=== PATIENT | male | born 1990 | race Caucasian/White ===

== ENCOUNTER 2023-12-20 14:04 | Emergency (ER) | payer OTHER, SELFPAY ==
[2023-12-20 14:09] VITALS: BP 134/84; PULSE 88; RESP 16; TEMP 36.6; O2SAT 97; BMI 28.8
--- NOTE | 2023-12-20 14:17 | DI.RAD.S_ITS ---
PROCEDURE: XR CHEST 1V INDICATIONS: SOB, cough TECHNIQUE: One view of the chest was acquired. COMPARISON: None. FINDINGS: Surgical changes and devices: None. Lungs and pleura: Lungs are clear. No pleural effusions or pneumothorax. Mediastinum: Mediastinal contours appear normal. Heart size is normal. Bones and chest wall: No suspicious bony lesions. Overlying soft tissues appear unremarkable. IMPRESSION: No acute cardiopulmonary abnormality is seen. Dictated by: Magno Stein M.D. on 12/20/2023 at 14:52 Approved by: Magno Stein M.D. on 12/20/2023 at 14:52
--- NOTE | 2023-12-20 15:02 | PC.NURSE ---
PT REPORTS WORSENING SHORTNESS OF BREATH; STATES IT IS WORSE UPON EXERTION. DENIES HX OF BLOOD CLOTS. NO EDEMA OR FLUID OVERLOAD SEEN, HEARD, OR REPORTED BY PT. PT REPORTS HE HAD COVID A COUPLE WEEKS AGO AND HAS A PHYSICAL COMING UP SO HE WANTED TO MAKE SURE HE WAS CLEAR FOR THE TEST. PT DENIES HX OF ASTHMA. PT STATES HE DOES NOT HAVE ANY SHARP PAINS IN HIS CHEST OR BACK.
--- NOTE | 2023-12-20 15:04 | ED.SOB ---
HPI - SOB/Dyspnea General Chief Complaint: Shortness of Breath/Dyspnea Stated Complaint: sob Time Seen by Provider: 12/20/23 14:17 Source: patient Mode of arrival: Ambulatory History of Present Illness HPI Narrative: 32-year-old male with history of COVID illness about 1 month ago, seemed to get better, now with about 1 week or so of shortness of breath with exertion such as walking briskly or going upstairs. No associated chest pain. He has not tried any inhalers, does not have any known history of asthma or chronic lung problems. No leg pain or swelling symptoms. History of congestive heart failure. Related Data Previous Rx's Medication Instructions Recorded albuterol sulfate 90 mcg/actuation 2 puff inhalation Q6H PRN 12/20/23 aerosol inhaler shortness of breath or wheezing #8.5 grams Allergies Allergy/AdvReac Type Severity Reaction Status Date / Time No Known Drug Allergies Allergy Verified 12/20/23 14:13 Review of Systems Review of Systems Narrative: see HPI Patient History Social History Smoking Status: Never smoker Smoking Status: Never smoker Substance Use Type: does not use Exam Narrative Exam Narrative: GENERAL: Well-developed patient, in mild distress. HEAD: Atraumatic. Normocephalic. EYES: Pupils equal round and reactive. Extraocular motions intact. No scleral icterus. No injection or drainage. ENT: Nose without bleeding, purulent drainage. Throat without erythema, tonsillar hypertrophy or exudate. Airway patent. NECK: Trachea midline. Non tender CARDIOVASCULAR: Regular rate and rhythm without murmurs, gallops, or rubs. RESPIRATORY: Clear to auscultation. Breath sounds equal bilaterally. No wheezes, rales, or rhonchi. GASTROINTESTINAL: Abdomen soft, non-tender, nondistended. EXTREMITIES: No edema or joint tenderness. BACK: Nontender without deformity or crepitance. No flank tenderness. NEURO: AOx3. Motor functions grossly nonfocal SKIN: No rash or erythema of visible areas Initial Vital Signs Initial Vital Signs: Vital Signs Temperature 97.8 F 12/20/23 14:09 Pulse Rate 88 12/20/23 14:09 Respiratory Rate 16 12/20/23 14:09 Blood Pressure 134/84 12/20/23 14:09 Pulse Oximetry 97 12/20/23 14:09 Oxygen Delivery Method Room Air 12/20/23 14:09 Scores PERC Score Age greater than or equal to 50 years: No Heart rate greater than or equal to 100 bpm: No Room Air O2 Sat less than 95%: No Unilateral leg swelling: No Recent trauma or surgery: No Hemoptysis: No Prior PE or DVT: No Hormone Use: No Total PERC Score: 0 Course Orders Ordered: ED Orders 12/20/23 14:17 XR chest 1V Stat 12/20/23 14:24 Covid-19 + FLU A/B + RSV - PCR Stat Discontinued Medications Albuterol (Albuterol 2.5 Mg/3 Ml Neb (Adult)) 2.5 mg INH NOW ONE Stop: 12/20/23 14:24 Last Admin: 12/20/23 15:05 Dose: 2.5 mg Documented By: KILLIAN Vital Signs Vital signs: Vital Signs - 8 hr 12/20/23 14:09 12/20/23 15:05 12/20/23 16:12 Temperature 97.8 F Pulse Rate 88 69 85 Respiratory Rate 16 16 16 Blood Pressure 134/84 135/73 Pulse Oximetry 97 100 100 Oxygen Delivery Method Room Air Room Air Room Air MDM - SOB/Dyspnea Lab Data Attestation: I reviewed the patient's lab results. Lab results narrative: COVID flu RSV negative Labs: Lab Results 12/20/23 Range/Units 14:24 SARS-CoV-2 (PCR) Negative (Negative) Influenza A (RT-PCR) Flu a negative (NEGATIVE) Influenza B (RT-PCR) Flu b negative (NEGATIVE) RSV (PCR) Negative (Negative) Imaging Data Chest x-ray: Radiologist's Impression: [address] [id number] XRay Report Signed Patient: Swapnil Alcantar MR#: [id number] : 1990 Acct:[id number] Age/Sex: 32 / M Date of Service: 12/20/23 Loc: ED Accession Number: [id number] Procedure: XR chest 1V Ordering Provider: Brian Graham MD PROCEDURE: XR CHEST 1V INDICATIONS: SOB, cough TECHNIQUE: One view of the chest was acquired. COMPARISON: None. FINDINGS: Surgical changes and devices: None. Lungs and pleura: Lungs are clear. No pleural effusions or pneumothorax. Mediastinum: Mediastinal contours appear normal. Heart size is normal. Bones and chest wall: No suspicious bony lesions. Overlying soft tissues appear unremarkable. IMPRESSION: No acute cardiopulmonary abnormality is seen. Dictated by: Magno Stein M.D. on 12/20/2023 at 14:52 Approved by: Magno Stein M.D. on 12/20/2023 at 14:52 [facility] Narrative Medical decision making narrative: 32-year-old male with exertional shortness of breath for the last week, had COVID illness 1 month ago, no new injury or trauma, no known heart failure, no treatments tried. He does not have tachycardia, fever, tachypnea, hypoxia on screening vitals. Lung exam normal, no respiratory distress. No lower extremity edema or pain. PERC negative for pulmonary embolus risk. He does not have any known CAD. He does not have coronary artery risk factors. Doubt congestive heart failure. Doubt pulmonary embolus. Doubt pericardial effusion/tamponade. Doubt myocarditis. Doubt coronary artery disease. Consider bronchospasm, consider trial of bronchodilator. Chest x-ray unremarkable, see radiology report. COVID flu RSV swab negative. SVN treatment, tolerated well, not particularly short of breath at rest. Trial of albuterol with spacer that was dispensed from emergency department, albuterol sent to his pharmacy, to use 2 puffs 4 times daily to see if he has change in his symptoms. Further workup as an outpatient for now. Discharge Plan Departure Patient Disposition: Home Clinical Impression: Exertional shortness of breath Activity Restrictions/Additional Instructions: Exertional shortness of breath. COVID illness last month. Swab today negative for COVID and RSV and influenza viruses. Chest x-ray today showed no heart enlargement, no pneumonia changes, no acute changes, per Radiology interpretation report. You had normal vitals, no increased heart rate, no increased respiratory rate, normal oxygenation on room air, lungs were clear on examination without obvious crackles or wheezes, and no obvious symptoms of leg pain or swelling symptoms. It does not seem that you were likely in congestive heart failure. Does not seem likely that you are having blood clots to the lungs, you have no obvious risk factors for recent heart attack. It is possible you may have some sequelae of post COVID lung problems. Sometimes further testing such as pulmonary function testing might be helpful in follow up, discussed with your primary care provider. Sometimes further testing could involve things like echocardiogram ultrasound of the heart, cardiac stress testing, other studies. For now might be prudent to try inhaler with use of a spacer, 2 puffs 4 times daily for the next few days, then as needed, to see if you feel any different with use of a bronchodilator. Recheck symptoms with your regular doctor this next week. Further testing and evaluation as an outpatient for now. Return earlier to this/nearest emergency department for any change worsening symptoms or any concerns prior Prescriptions: New albuterol sulfate 90 mcg/actuation HFA aerosol inhaler 2 puff inhalation Q6H PRN (Reason: shortness of breath or wheezing) Qty: 8.5 0RF Stand Alone Forms: Patient Portal/API
[2023-12-20 15:05] VITALS: PULSE 69; RESP 16; O2SAT 100
[2023-12-20] MEDS: ALBUTEROL 2.5 MG/3 ML NEB (ADULT) INH (15:05)
[2023-12-20 15:30] LABS: Influenza A - CEPHEID Flu A NEGATIVE (NEGATIVE); Influenza B - CEPHEID Flu B NEGATIVE (NEGATIVE); Respiratory Syncytial Virus Negative (Negative)
[2023-12-20 15:37] LABS: COVID-19 CEPHEID 4-PLEX PCR Negative (Negative)
--- NOTE | 2023-12-20 15:51 | PC.NURSE ---
spacer training provided; questions answered. pt verbalized understanding.
[2023-12-20 16:12] VITALS: BP 135/73; PULSE 85; RESP 16; O2SAT 100
== END 2023-12-20 16:12 | disposition home or self-care (01) ==
PROVIDERS: Emergency Provider Emergency Medicine
DX: R06.02 Shortness of breath (principal); Z86.16 Personal history of COVID-19; Z11.52 Encounter for screening for COVID-19
CPT/HCPCS: 0241U; 71045; 94640; 99283; J7613